=== PATIENT | female | born 1965 | race Native Hawaiian/Other Pacific Islander ===

== ENCOUNTER 2016-11-06 19:31 | Inpatient (IN) | payer OTHER ==
[2016-11-06 19:32] VITALS: BMI 25.3
[2016-11-06] MEDS ORDERED: Sodium Chloride 0.9% 1,000 ML IV ONE (20:06)
[2016-11-06 20:19] LABS: BASO % 0.3 % (0.0-2.0); EOS # 0.1 K/uL (0.0-0.7); EOS % 1.2 % (0.0-4.0); HEMATOCRIT 42.5 % (34.0-47.0); LYMPH # 1.2 K/uL (1.0-4.3); LYMPH % 12.8 % (20.0-40.0); MEAN CELL VOLUME 82.8 fL (81.0-99.0); MEAN CORPUSCULAR HEMOGLOBIN 28.2 pg (27.0-31.0); MEAN CORPUSCULAR HGB CONC 34.1 g/dL (33.0-37.0); MEAN PLATELET VOLUME 7.4 fL (7.2-11.7); MONO # 0.7 K/uL (0.0-0.8); MONO % 7.1 % (0.0-10.0); RED CELL DISTRIBUTION WIDTH 13.3 % (11.5-14.5); WHITE BLOOD COUNT 9.3 K/uL (4.8-10.8)
[2016-11-06 20:25] LABS: POTASSIUM 3.7 mmol/L (3.6-5.2)
[2016-11-06 20:26] LABS: RBC URINE 2 /hpf (0-3); URINE BACTERIA FEW (<OCC); URINE BILIRUBIN NEGATIVE (NEGATIVE); URINE CALCIUM OXALATE CRYSTALS OCC /hpf (<OCC); URINE COLOR Yellow (YELLOW); URINE GLUCOSE (UA) NORMAL (Normal); URINE KETONE NEGATIVE (NEGATIVE); URINE LEUKOCYTE ESTERASE 3+ Leu/uL (Negative); URINE PROTEIN 3+ mg/dL (NEGATIVE); URINE UROBILINOGEN NORMAL mg/dL (0.2-1.0); WBC URINE 23 /hpf (0-5)
[2016-11-06 20:27] LABS: ALB/GLOB RATIO 1.4 (1.0-2.1); BILIRUBIN,TOTAL 0.5 mg/dL (0.2-1.3)
[2016-11-06 20:28] LABS: CALCIUM 9.1 mg/dl (8.6-10.4); URINE BLOOD TRACE (NEGATIVE)
--- NOTE | 2016-11-06 20:43 | C.PDOC ---
History Of Present Illness 51 y/o female presents to the ED with complains of left sided abdominal pain intermittently for the past 3 days. Pt also reports intermittent dizziness, no LOC. Pt denies fever, chills, vomiting, diarrhea, or any other complaints. Chief Complaint (Nursing): Abdominal Pain History Per: Patient History/Exam Limitations: no limitations Onset/Duration Of Symptoms: Days, Intermittent Episodes Current Symptoms Are (Timing): Still Present Radiation Of Pain To:: None Quality Of Discomfort: "Pain" Associated Symptoms: denies: Fever, Chills, Vomiting, Diarrhea Exacerbating Factors: None Recent travel outside of the [place]: No Past Medical History Reviewed: Historical Data, Nursing Documentation, Vital Signs Vital Signs: Last Vital Signs Temp 97.9 F 11/06/16 19:34 Pulse 97 H 11/06/16 19:34 Resp 20 11/06/16 19:34 BP 163/86 H 11/06/16 19:34 Pulse Ox 98 11/06/16 21:09 - Medical History PMH: Asthma, HTN, Hypercholesterolemia - [facility] Procedures ENDOMETRIAL ABLATION (12/13/13) PERCUTAN NEEDLE BIOPSY OF BREAST (02/04/13) RADICAL EXCIS SKIN LES (10/20/14) Family History: States: Unknown Family Hx - Social History Hx Alcohol Use: No Hx Substance Use: No - Immunization History Hx Influenza Vaccination: Yes Review Of Systems Except As Marked, All Systems Reviewed And Found Negative. Constitutional: Negative for: Fever, Chills Gastrointestinal: Positive for: Abdominal Pain. Negative for: Vomiting, Diarrhea Neurological: Positive for: Dizziness Physical Exam - Physical Exam Appears: Non-toxic, No Acute Distress Skin: Warm, Dry, No Rash Head: Atraumatic, Normacephalic Chest: Symmetrical Cardiovascular: Rhythm Regular, No Murmur Respiratory: Normal Breath Sounds, No Rales, No Rhonchi, No Wheezing Gastrointestinal/Abdominal: Soft, Tenderness (LLQ), No Guarding, No Rebound Extremity: Bilateral: Atraumatic Neurological/Psych: Oriented x3, Normal Speech ED Course And Treatment - Laboratory Results Result Diagrams: 11/06/16 20:12 11/06/16 20:12 O2 Sat by Pulse Oximetry: 98 (on room air) Pulse Ox Interpretation: Normal - CT Scan/US CT abdomen Other Rad Studies (CT/US): Read By Radiologist, Radiology Report Reviewed CT/US Interpretation: EXAM: CT Abdomen and Pelvis Without Intravenous Contrast. CLINICAL HISTORY: 51 years old, female; Pain; Abdominal pain; Localized; Left lower quadrant. (llq); Additional info: Abd pain. TECHNIQUE: Axial computed tomography images of the abdomen and pelvis without intravenous. contrast. This CT exam was performed using one or more of the following dose reduction. techniques: automated exposure control, adjustment of the mA and/or kV according to patient size,. and/or use of iterative reconstruction technique. Coronal and sagittal reformatted images were. created and reviewed. COMPARISON : CT - ABDOMEN,PELVIS W/WO CONTRAST 02/29/2016 9:04:57 AM. FINDINGS: Lower thorax: Linear atelectasis or fibrosis in the lung bases. ABDOMEN: Liver: Unremarkable. Gallbladder and bile ducts: Unremarkable. No calcified stones. No ductal dilation. Pancreas: Unremarkable. No ductal dilation. Spleen: Unremarkable. No splenomegaly. Adrenals: Unremarkable. No mass. Kidneys and ureters: Hydronephrosis left kidney due to an obstructing 6 mm stone in the proximal. left ureter. No stones within either kidney or in the right ureter. No hydronephrosis on the right. Stomach and bowel: Unremarkable. No obstruction. No mucosal thickening. Appendix: Normal appendix. PELVIS: Bladder: Unremarkable. No stones. Reproductive: Unremarkable as visualized. ABDOMEN and PELVIS: Intraperitoneal space: Unremarkable. No free air. No significant fluid collection. Bones/joints: No acute fracture. No dislocation. Soft tissues: Unremarkable. Vasculature: Unremarkable. No abdominal aortic aneurysm. Lymph nodes: Unremarkable. No enlarged lymph nodes. IMPRESSION: Hydronephrosis left kidney due to an obstructing 6 mm stone in the proximal left ureter. Thank you for allowing us to participate in the care of your patient. Dictated and Authenticated by: Luiz Meyer MD. 11/06/2016 8:38 PM Eastern Time ([place] & [place]) Medical Decision Making Medical Decision Making: Plan: CT abdomen, EKG, CXR, labs, toradol, cipro, IV fluids, UA Disposition Discussed With : Figueroa Williamson Doctor Will See Patient In The: Hospital Counseled Patient/Family Regarding: Diagnosis - Disposition Disposition Time: 21:05 Condition: STABLE - POA Present On Arrival: None - Clinical Impression Clinical Impression: Abdominal pain, Renal colic on left side, Hydronephrosis - Scribe Statement The provider has reviewed the documentation as recorded by the Willi Gamboa Provider Attestation: All medical record entries made by the Willi were at my direction and personally dictated by me. I have reviewed the chart and agree that the record accurately reflects my personal performance of the history, physical exam, medical decision making, and the department course for this patient. I have also personally directed, reviewed, and agree with the discharge instructions and disposition.
[2016-11-06] MEDS ORDERED: Ciprofloxacin 400mg/200ml D5W 200 ML IVPB STA (20:48)
[2016-11-06] MEDS ORDERED: Ciprofloxacin 400mg/200ml D5W 200 ML IVPB ONE (21:27)
[2016-11-06] MEDS ORDERED: Oxycodone/Acetaminophen 5/325 mg Tab PO PRN (23:23)
[2016-11-06] MEDS ORDERED: Ciprofloxacin 400mg/200ml D5W 200 ML IVPB SCH (23:45)
--- NOTE | 2016-11-07 08:50 | CT ---
PROCEDURE: CT Abdomen and Pelvis without intravenous contrast HISTORY: Abdominal pain COMPARISON: CT scan dated 02/29/2016 TECHNIQUE: Axial computed tomographic images of the abdomen and pelvis were performed without intravenous contrast. Subsequently, sagittal and coronal reformatted images were obtained. Radiation dose: Total exam DLP = 248 mGy-cm. FINDINGS: LOWER THORAX: Linear atelectasis and or fibrosis at the lung bases. LIVER: Unremarkable. No gross lesion or ductal dilatation. GALLBLADDER AND BILE DUCTS: Unremarkable. PANCREAS: Unremarkable. No gross lesion or ductal dilatation. SPLEEN: Unremarkable. ADRENALS: Unremarkable. No mass. KIDNEYS AND URETERS: Hydronephrosis of the left kidney secondary to an obstructing 6 millimeter calculus in the proximal left ureter. VASCULATURE: Unremarkable. No aortic aneurysm. BOWEL: Unremarkable. No obstruction. No gross mural thickening. APPENDIX: Unremarkable. Normal appendix. PERITONEUM: Unremarkable. No free fluid. No free air. LYMPH NODES: Unremarkable. No enlarged lymph nodes. BLADDER: Unremarkable. REPRODUCTIVE: Unremarkable. BONES: No acute fracture. OTHER FINDINGS: None. IMPRESSION: Hydronephrosis of the left kidney secondary to an obstructing 6 millimeter calculus in the proximal left ureter. These findings were preliminarily reported at 8:38 p.m. on 11/06/[address] Luiz Meyer from [employer].
--- NOTE | 2016-11-07 09:14 | RAD ---
HISTORY: abd pain COMPARISON: 12/09/2013 TECHNIQUE: Chest PA and lateral FINDINGS: LUNGS: No active pulmonary disease. PLEURA: No significant pleural effusion identified. No pneumothorax apparent. CARDIOVASCULAR: Normal. OSSEOUS STRUCTURES: No significant abnormalities. VISUALIZED UPPER ABDOMEN: Normal. OTHER FINDINGS: None. IMPRESSION: No active disease.
[2016-11-07] MEDS ORDERED: Enoxaparin 40 mg Syringe SC SCH (10:00)
[2016-11-07] MEDS: Ciprofloxacin 400mg/200ml D5W 200 ML IVPB SCH ×2 (10:25→21:30)
[2016-11-07] MEDS ORDERED: Sodium Chloride 0.9% 1,000 ML IV SCH (14:15)
--- NOTE | 2016-11-07 14:15 | CP.PCM.HP ---
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 She denies any fever, any chills, any burning micturation, any bloody urine. A CT scan of the abdomen reveals a small stone obstructing the proximal left ureter and causing a left hydronephrosis. She was diagnosed to have a left utereal stent with a left hydronephrosis since last year, but the patient did not seek an urological evaluation as recommended by her PMD. She is also known to have a hypertension, a bronchial asthma, a hypercholesterolemia, a bordeline DM. Past surgical Hx includes a uterine D&C in the past. She has no known drug allergy. She is , denies any cigarette smoking, any alcohol abuse, any illicit drug use. Her family medical Hx consists of HPTH, DM. Her medications includes Losartan 50 mg PO qd, Singulair 10 mg PO qd, and Crestor 10 mg PO qd. WBC: 9.4 Hgb: 13.4 BUN: 15 creatinine: 1.5 U/A : trace blood, 3 + protein, 3+ Leucocytes esterase. Present on Admission - Present on Admission Any Indicators Present on Admission: No Review of Systems - Gastrointestinal Gastrointestinal: Abdominal Pain, Nausea - Genitourinary Genitourinary: Flank Pain Past Patient History - Infectious Disease Hx of Infectious Diseases: None - Tetanus Immunizations Tetanus Immunization: Unknown - Past Medical History & Family History Past Medical History?: Yes - Past Social History Smoking Status: Never Smoked Alcohol: None Drugs: Denies Home Situation {Lives}: With Family Domestic Violence: Negative - CARDIAC Hx Cardiac Disorders: Yes Hx Hypercholesterolemia: Yes Hx Hypertension: Yes - PULMONARY Hx Respiratory Disorders: Yes Hx Asthma: Yes - NEUROLOGICAL Hx Neurological Disorder: No - HEENT Hx HEENT Problems: No - RENAL Hx Chronic Kidney Disease: No - ENDOCRINE/METABOLIC Hx Endocrine Disorders: No - HEMATOLOGICAL/ONCOLOGICAL Hx Blood Disorders: No - INTEGUMENTARY Hx Dermatological Problems: No - MUSCULOSKELETAL/RHEUMATOLOGICAL Hx Musculoskeletal Disorders: No Hx Falls: No - GASTROINTESTINAL Hx Gastrointestinal Disorders: No - GENITOURINARY/GYNECOLOGICAL Hx Genitourinary Disorders: No Other/Comment: MENORRHAGIA - PSYCHIATRIC Hx Psychophysiologic Disorder: No Hx Substance Use: No - SURGICAL HISTORY Hx Surgeries: Yes Hx Section: Yes (x2) Hx Dilation and Curettage: Yes Other/Comment: STEREOTACTIC BREAST BX - ANESTHESIA Hx Anesthesia: Yes Hx Anesthesia Reactions: No Hx Malignant Hyperthermia: No Has any member of the family had a problem w/ anesthesia?: No Meds Allergies/Adverse Reactions: Allergies Allergy/AdvReac Type Severity Reaction Status Date / Time No Known Allergies Allergy Verified 11/06/16 19:37 Physical Exam - Constitutional Appears: No Acute Distress - Head Exam Head Exam: NORMAL INSPECTION - Eye Exam Eye Exam: Normal appearance - ENT Exam ENT Exam: Normal Exam - Neck Exam Neck exam: Positive for: Normal Inspection - Respiratory Exam Respiratory Exam: Clear to Auscultation Bilateral, NORMAL BREATHING PATTERN - Cardiovascular Exam Cardiovascular Exam: REGULAR RHYTHM - GI/Abdominal Exam GI & Abdominal Exam: Normal Bowel Sounds, Soft Additional comments: Mild tenderness of the left flank. - Rectal Exam Rectal Exam: Deferred - Extremities Exam Extremities exam: Positive for: normal inspection - Back Exam Back exam: NORMAL INSPECTION - Neurological Exam Neurological exam: Alert, CN II-XII Intact, Normal Gait, Oriented x3 - Psychiatric Exam Psychiatric exam: Anxious - Skin Skin Exam: Dry, Intact, Normal Color, Warm Results - Vital Signs Recent Vital Signs: Last Vital Signs Temp 99.2 F 11/07/16 07:30 Pulse 87 11/07/16 07:30 Resp 18 11/07/16 07:30 BP 162/79 H 11/07/16 07:30 Pulse Ox 98 11/07/16 07:30 - Labs Result Diagrams: 11/06/16 20:12 11/06/16 20:12 Assessment & Plan (1) Hydronephrosis Assessment and Plan: Secondary to an obstructing left ureteral stones. Hold Lovenox and Toradol for a cystoscopy, lithotrysy and ureteral stent insertion. Status: Acute (2) Renal colic on left side Assessment and Plan: From a left ureteral stone. Start Dilaudid 1mg IV q 4 H PRN for pain. Get a urological evaluation with Dr Chakraborty. Status: Acute (3) Hypertension Assessment and Plan: Put back on Losartan. Status: Acute (4) Urinary tract infection Assessment and Plan: Urine for C&S. Start empirically on Cipro 400 mg IVPB q 12 h, IV NS. Status: Acute Decision To Admit - Pt Status Changed To: Hospital Disposition Of: Inpatient - Admit Certification Admit to Inpatient:: After my assessment, the patient will require hospitalization for at least two midnights. This is because of the severity of symptoms shown, intensity of services needed, and/or the medical risk in this patient being treated as an outpatient. - InPatient: Physician Admission Certification:: After my assessements, the patient requires hospitalization for at least 2 midnights. - . Bed Request Type: Regular
--- NOTE | 2016-11-07 17:08 | RAD ---
HISTORY: Abdominal pain COMPARISON: CT abdomen and pelvis 11/06/2016 FINDINGS: BOWEL: Right colonic stool retention. No bowel obstruction. The hemidiaphragms are clipped on this exam No subdiaphragmatic free air on same-day chest x-ray 11/06/2016 5 mm calcification left upper outer quadrant consistent with the CT reported obstructing calculus in the proximal left ureter . Left hemipelvic phlebolith BONES: Normal. OTHER FINDINGS: None. IMPRESSION: Left upper abdominal quadrant calcification consistent with the CT reported obstructing calculus in the proximal left ureter. Right colonic stool retention. No bowel obstruction
[2016-11-07] MEDS ORDERED: Midazolam 2 MG/2 ML VIAL ONE (18:23)
[2016-11-07] MEDS ORDERED: Propofol 10 mg/ml Inj (20 ML) ONE ×2 (18:23→19:17)
[2016-11-07] MEDS ORDERED: HYDROmorphone 0.5 mg/0.5 ml ISec IVP PRN (18:26)
[2016-11-07] MEDS ORDERED: Lactated Ringer's 1,000 ML IV ONE ×2 (18:41)
[2016-11-07] MEDS ORDERED: Iohexol 240 (50 ml) ONE (18:46)
[2016-11-07] MEDS ORDERED: Ciprofloxacin 400mg/200ml D5W 200 ML IVPB ONE (19:05)
--- NOTE | 2016-11-07 19:32 | CP.PCM.CON ---
Past Patient History - Infectious Disease Hx of Infectious Diseases: None - Tetanus Immunizations Tetanus Immunization: Unknown - Past Medical History & Family History Past Medical History?: Yes - Past Social History Smoking Status: Never Smoked Alcohol: None Drugs: Denies Home Situation {Lives}: With Family Domestic Violence: Negative - CARDIAC Hx Cardiac Disorders: Yes Hx Hypercholesterolemia: Yes Hx Hypertension: Yes - PULMONARY Hx Respiratory Disorders: Yes Hx Asthma: Yes - NEUROLOGICAL Hx Neurological Disorder: No - HEENT Hx HEENT Problems: No - RENAL Hx Chronic Kidney Disease: No - ENDOCRINE/METABOLIC Hx Endocrine Disorders: No - HEMATOLOGICAL/ONCOLOGICAL Hx Blood Disorders: No - INTEGUMENTARY Hx Dermatological Problems: No - MUSCULOSKELETAL/RHEUMATOLOGICAL Hx Musculoskeletal Disorders: No Hx Falls: No - GASTROINTESTINAL Hx Gastrointestinal Disorders: No - GENITOURINARY/GYNECOLOGICAL Hx Genitourinary Disorders: No Other/Comment: MENORRHAGIA - PSYCHIATRIC Hx Psychophysiologic Disorder: No Hx Substance Use: No - SURGICAL HISTORY Hx Surgeries: Yes Hx Section: Yes (x2) Hx Dilation and Curettage: Yes Other/Comment: STEREOTACTIC BREAST BX - ANESTHESIA Hx Anesthesia: Yes Hx Anesthesia Reactions: No Hx Malignant Hyperthermia: No Has any member of the family had a problem w/ anesthesia?: No Meds Allergies/Adverse Reactions: Allergies Allergy/AdvReac Type Severity Reaction Status Date / Time No Known Allergies Allergy Verified 11/06/16 19:37 - Medications Medications: Current Medications Hydromorphone HCl (Dilaudid) 1 mg IVP Q4H PRN PRN Reason: Pain, moderate (4-7) Ciprofloxacin (Cipro 400mg/200ml Dsw) 200 mls @ 133 mls/hr IVPB Q12H [facility] Last Admin: 11/07/16 10:25 Dose: 133 mls/hr Sodium Chloride (Sodium Chloride 0.9%) 1,000 mls @ 100 mls/hr IV .Q10H [facility] Losartan Potassium (Cozaar) 50 mg PO DAILY [facility] Last Admin: 11/07/16 10:26 Dose: Not Given Ondansetron HCl (Zofran Inj) 4 mg IVP Q4H PRN PRN Reason: Nausea/Vomiting Ondansetron HCl (Zofran Inj) 4 mg IVP ONCE PRN PRN Reason: Nausea/Vomiting Stop: 11/07/16 20:27 Tamsulosin HCl (Flomax) 0.4 mg PO ONCE ONE Stop: 11/07/16 19:30 Results - Vital Signs Recent Vital Signs: Last Vital Signs Temp 97.8 F 11/07/16 15:58 Pulse 76 11/07/16 15:58 Resp 20 11/07/16 15:58 BP 156/96 H 11/07/16 15:58 Pulse Ox 96 11/07/16 15:58 - Labs Result Diagrams: 11/08/16 06:55 11/08/16 06:55 Assessment & Plan - Assessment and Plan (Free Text) Assessment: IMP: L RENAL COLIC L UPPER URETERAL CALCULUS HX OF HYPERTENSION Plan: please see dictated report - Date & Time Date: 11/07/16 Time: 06:55
--- NOTE | 2016-11-07 19:34 | PCM.SURG1 ---
Surgeon's Initial Post Op Note - Surgeon's Notes Surgeon: Hattie CASTRO [employer] Console Operator: NONE Pre-Operative Diagnosis: L RENAL COLIC. L URETERAL CALCULUS Operative Findings: SAME. L HYDRONEPHROSIS Post-Operative Diagnosis: SAME Operation Performed: CYSTO. L RTG PYELOGRAM. INSERTION OF L URETERAL STENT Specimen/Specimens Removed: URINE Estimated Blood Loss: EBL {In ML}: 0 Blood Products Given: N/A Drains Used: No Drains Date of Surgery/Procedure: 11/07/16 Time of Surgery/Procedure: 19:34
[2016-11-07] MEDS: HYDROmorphone 1 mg/ml ISec IVP PRN (22:27)
[2016-11-08] MEDS: HYDROmorphone 1 mg/ml ISec IVP PRN (05:13)
[2016-11-08 07:11] LABS: BASO % 0.3 % (0.0-2.0); EOS # 0.1 K/uL (0.0-0.7); EOS % 0.6 % (0.0-4.0); HEMATOCRIT 36.6 % (34.0-47.0); LYMPH # 1.4 K/uL (1.0-4.3); LYMPH % 15.6 % (20.0-40.0); MEAN CELL VOLUME 83.3 fL (81.0-99.0); MEAN CORPUSCULAR HEMOGLOBIN 28.8 pg (27.0-31.0); MEAN CORPUSCULAR HGB CONC 34.6 g/dL (33.0-37.0); MEAN PLATELET VOLUME 7.7 fL (7.2-11.7); MONO # 0.5 K/uL (0.0-0.8); MONO % 5.3 % (0.0-10.0); WHITE BLOOD COUNT 8.8 K/uL (4.8-10.8)
[2016-11-08 07:26] LABS: POTASSIUM 4.2 mmol/L (3.6-5.2)
[2016-11-08 07:29] LABS: ALB/GLOB RATIO 1.3 (1.0-2.1); BILIRUBIN,TOTAL 0.8 mg/dL (0.2-1.3); CALCIUM 8.4 mg/dl (8.6-10.4); TOTAL PROTEIN 6.4 g/dL (6.3-8.3)
--- NOTE | 2016-11-08 08:08 | CON ---
DATE: 11/07/2016 Urology consultation requested by Dr. Figueroa Williamson. Urology consultation filled by Dr. Clementine Chakraborty . REASON FOR CONSULTATION: Renal colic. The patient is a 51-year-old female with left flank pain. The patient is in otherwise good health. The patient has a history of hypertension. She is otherwis e well. No history of diabetes. There is no history of previous urolithiasis. The patient developed severe left flank pain. There was associated nausea. No fever. No vomiting. No gross hematuria. The patient presented to the Emergency Room. She was found to have an obstructing 7 mm left upper ur eteral stone. The patient is now admitted for evaluation and therapy. The patient has required parenteral analgesics as well. PAST SURGICAL HISTORY: The patient has history of previous section x 2. The patient lives with family. The patient is employed as a nurse. MEDICATIONS: See attached reports. ALLERGIES: None known. The patient takes medications for hypertension. PHYSICAL EXAMINATION: GENERAL: The patient is well-developed, well-nourished, middle-aged female. The patient is awake an d alert. ABDOMEN: Soft, nontender, nondistended. BACK: Mild left CVA tenderness. LABORATORY DATA: Reviewed. I reviewed the CT scan and the abdominal x-ray. There is an obstructing upper ureteral calculus, at approximately the level of the lower pole of the kidney on the left side. The calculus is also seen on the PA view of the abdomen. IMPRESSION: Left renal colic. Left upper ureteral calculus. RECOMMENDATIONS AND PLAN: I will discuss the findings with the patient. Possible need for cystoscop y and stent insertion. Possible extracorporeal shockwave lithotripsy. Possible laser lithotripsy. Further therapy to follow according to patient's clinical course. Thank you for recommending the patient for urology consultation. Clementine Chakraborty MD cc: [phone] TT: 11/08/2016 08:07:46 Confirmation # [id number] Dictation # [id number]
--- NOTE | 2016-11-08 08:11 | OP ---
PROCEDURE DATE: 11/07/2016 DATE OF PROCEDURE: 11/07/2016. PREOPERATIVE DIAGNOSES: Left renal colic. Left ureteral calculus. POSTOPERATIVE DIAGNOSES: Left renal colic. Left ureteral calculus. PROCEDURES: Cystoscopy. Left retrograde pyelogram. Left ureteral stone manipulation. Insertion of left ureteral stent. The procedure was performed under video endoscopic control as well as under fluoroscopic control. DESCRIPTION OF PROCEDURE: The patient received perioperative antibiotics. The patient was placed in lithotomy position. Genitalia prepped and draped sterilely. Sedation anesthesia was provided by [facility] anesthesiologist. A 22-Japanese cystoscope sheath was introduced with obturator. Urine was sent for bacteriologic examin [facility], [place]. The bladder was inspected. There was no bladder tumor. There was no bladder stone. There was mild inflammation of bladder mucosa. The ureteral orifice was in normal position and shape. A 0.035-inch guidewire was inserted into the left ureteral orifice. The guidewire was passed up to t he level of the lumbar ureter. There was initially some obstruction encountered. Thereafter, I went up to the level of the kidney. An open-ended catheter was inserted over the guidewire into the proximal ureter. Iodinated contrast dye was instilled. There was noted to be a filling defect within the renal pelvis consistent with th e stone. The guidewire was reinserted up to the level of the kidney. A 6-Japanese multi-length stent w as inserted over the guidewire. Proper stent position was confirmed with fluoroscopy and endoscopy. The bladder was drained. Cystoscope and sheath removed. Bimanual examination/exam under anesthesia was performed. There was no abnormal pelvic mass fixation or induration. There was no adnexal mass. The uterus was palpable and mobile. The patient tolerated the procedure without complication. Clementine Chakraborty MD cc: [phone] TT: 11/08/2016 08:11:36 co
[2016-11-08] MEDS: Ciprofloxacin 400mg/200ml D5W 200 ML IVPB SCH ×2 (08:37→21:04)
--- NOTE | 2016-11-08 12:26 | PCM.URO ---
Urology Progress Note - General General: absent: Tolerating Diet - Subjective Abdominal Pain: Yes Flank Pain: Yes Nausea: Yes Dysuria: Yes Hematuria: Yes (mild) Frequency: Yes Stone Passed: No Dsypnea: No Chest Pain: No Fever & Chills: No - Objective Lab Results Last 24 Hours: Laboratory Results - last 24 hr 11/07/16 11/08/16 23:52 06:55 WBC 8.8 RBC 4.39 Hgb 12.6 Hct 36.6 MCV 83.3 MCH 28.8 MCHC 34.6 RDW 13.0 Plt Count 208 MPV 7.7 Neut % (Auto) 78.2 H Lymph % (Auto) 15.6 L Ward % (Auto) 5.3 Eos % (Auto) 0.6 Baso % (Auto) 0.3 Neut # 6.9 Lymph # 1.4 Ward # 0.5 Eos # 0.1 Baso # 0.0 Sodium 140 Potassium 4.2 Chloride 98 Carbon Dioxide 30 Anion Gap 16 BUN 20 H Creatinine 1.3 H Est GFR ( Amer) 52 Est GFR (Non-Af Amer) 43 POC Glucose (mg/dL) 160 H Random Glucose 113 H Calcium 8.4 L Total Bilirubin 0.8 AST 23 ALT 36 Alkaline Phosphatase 54 Total Protein 6.4 Albumin 3.6 Globulin 2.8 Albumin/Globulin Ratio 1.3 Intake & Output: Intake & Output 11/07/16 11/08/16 11/08/16 18:59 06:59 18:59 Intake Total 1000 Output Total 500 Balance 500 Intake: Intake, IV Amount 800 Left Forearm 800 Oral 200 Output: Urine 500 Urine, Voided 500 Other: # Voids Urine, Voided 1 Vital Signs: Vital Signs - 24 hr 11/07/16 11/07/16 11/07/16 15:00 15:58 19:37 Temperature 97.8 F 98.8 F Pulse Rate 87 76 83 Respiratory 20 14 Rate Blood Pressure 156/96 H 120/73 O2 Sat by Pulse 96 98 Oximetry 11/07/16 11/07/16 11/07/16 19:45 20:00 20:15 Temperature 99 F Pulse Rate 80 77 78 Respiratory 11 L 13 13 Rate Blood Pressure 115/74 141/84 148/89 O2 Sat by Pulse 99 100 95 Oximetry 11/07/16 11/08/16 23:30 07:30 Temperature 98.8 F Pulse Rate 78 79 Respiratory 18 Rate Blood Pressure 171/89 H O2 Sat by Pulse 96 Oximetry - Physical Exam Abdominal Exam: Soft, Non-Tender, Non-Distended Back: No CVA Tenderness - Plan Intake & Output: Yes See Orders: Yes Additional Information: stable post-cysto, stent insertion. urolithiasis. voiding sx. plan: abd xray. antibiotic rx. add tamsulosin, pyridium, oxybutinin - Date & Time of Note Date: 11/08/16 Time: 12:26
--- NOTE | 2016-11-08 23:06 | CP.PCM.PN ---
Subjective - Date & Time of Evaluation Date of Evaluation: 11/08/16 Time of Evaluation: 19:30 - Subjective Subjective: Patient nauseaous this AM with abdominal pain. Put on clear liquid diet by Dr Chakraborty. She underwent an insertion of a ureteral stent yesterday. Litrotrypsy could not be done because the patient received Toradol IV for pain yesterday. Will try a regular diet in AM before discharging her home. She is scheduled for an [facility]SWL at the [facility] on Friday. Objective - Vital Signs/Intake and Output Vital Signs (last 24 hours): Temp Pulse Resp BP Pulse Ox 97.9 F 82 18 151/83 H 97 11/08/16 15:31 11/08/16 15:31 11/08/16 15:31 11/08/16 15:31 11/08/16 15:31 Intake and Output: 11/08/16 11/09/16 18:59 06:59 Intake Total 400 1200 Output Total 600 2000 Balance -200 -800 - Medications Medications: Current Medications Hydromorphone HCl (Dilaudid) 1 mg IVP Q4H PRN PRN Reason: Pain, moderate (4-7) Last Admin: 11/08/16 05:13 Dose: 1 mg Ciprofloxacin (Cipro 400mg/200ml Dsw) 200 mls @ 133 mls/hr IVPB Q12H MICHA Last Admin: 11/08/16 21:04 Dose: 133 mls/hr Losartan Potassium (Cozaar) 50 mg PO DAILY [facility] Last Admin: 11/08/16 10:00 Dose: Not Given Ondansetron HCl (Zofran Inj) 4 mg IVP Q4H PRN PRN Reason: Nausea/Vomiting Last Admin: 11/08/16 05:20 Dose: 4 mg Oxybutynin Chloride (Ditropan Tab) 5 mg PO TID [facility] Last Admin: 11/08/16 18:23 Dose: 5 mg Phenazopyridine HCl (Pyridium) 200 mg PO TIDPC [facility] Last Admin: 11/08/16 18:23 Dose: 200 mg Tamsulosin HCl (Flomax) 0.4 mg PO DAILY [facility] Last Admin: 11/08/16 14:38 Dose: 0.4 mg - Labs Labs: 11/08/16 06:55 11/08/16 06:55 - Constitutional Appears: No Acute Distress - Head Exam Head Exam: NORMAL INSPECTION - Eye Exam Eye Exam: Normal appearance - ENT Exam ENT Exam: Normal Exam - Neck Exam Neck Exam: Normal Inspection - Respiratory Exam Respiratory Exam: Clear to Ausculation Bilateral, NORMAL BREATHING PATTERN - Cardiovascular Exam Cardiovascular Exam: REGULAR RHYTHM - GI/Abdominal Exam GI & Abdominal Exam: Soft, Normal Bowel Sounds - Rectal Exam Rectal Exam: Deferred - Extremities Exam Extremities Exam: Normal Inspection - Back Exam Back Exam: NORMAL INSPECTION - Neurological Exam Neurological Exam: Alert, CN II-XII Intact, Normal Gait, Oriented x3 - Psychiatric Exam Psychiatric exam: Anxious - Skin Skin Exam: Dry, Intact, Normal Color, Warm Assessment and Plan (1) Hydronephrosis Assessment & Plan: For a lithotrysy on Friday at the [facility] in [place]. Status: Acute (2) Renal colic on left side Assessment & Plan: Left ureteral stent inserted yesterday by Dr Chakraborty. Status: Acute (3) Hypertension Assessment & Plan: To continue Losartan PO. Status: Acute (4) Urinary tract infection Assessment & Plan: To continue IV Cipro. Status: Acute
[2016-11-09 00:51] VITALS: PULSE 86
--- NOTE | 2016-11-09 06:41 | CARD ---
APPROVED REPORT EKG Measurement Heart [id number] <Conclusion> Normal sinus rhythm Normal ECG
[2016-11-09 07:09] LABS: BASO % 0.6 % (0.0-2.0); EOS # 0.2 K/uL (0.0-0.7); EOS % 3.2 % (0.0-4.0); HEMATOCRIT 33.9 % (34.0-47.0); LYMPH % 28.3 % (20.0-40.0); MEAN CELL VOLUME 83.5 fL (81.0-99.0); MEAN CORPUSCULAR HEMOGLOBIN 28.5 pg (27.0-31.0); MEAN CORPUSCULAR HGB CONC 34.2 g/dL (33.0-37.0); MEAN PLATELET VOLUME 7.5 fL (7.2-11.7); MONO # 0.5 K/uL (0.0-0.8); MONO % 7.2 % (0.0-10.0); RED CELL DISTRIBUTION WIDTH 12.8 % (11.5-14.5)
[2016-11-09 08:06] LABS: POTASSIUM 3.8 mmol/L (3.6-5.2)
[2016-11-09 08:08] LABS: ALB/GLOB RATIO 1.2 (1.0-2.1); BILIRUBIN,TOTAL 0.3 mg/dL (0.2-1.3)
[2016-11-09 08:09] LABS: CALCIUM 8.5 mg/dl (8.6-10.4)
[2016-11-09] MEDS: Ciprofloxacin 400mg/200ml D5W 200 ML IVPB SCH (08:31)
--- NOTE | 2016-11-09 10:52 | RAD ---
HISTORY: neprolithiasis COMPARISON: Comparison is made to 11/07/2016 FINDINGS: BOWEL: Mildly dilated small and large bowel loops are seen slightly larger compared to the previous exam. BONES: Normal. OTHER FINDINGS: Interval insertion of left-sided ureter oral stent IMPRESSION: Left-sided ureteral stent seen in place. Mildly dilated small and large bowel loops.
[2016-11-09 16:11] VITALS: BP 166/95; RESP 18; TEMP 98.6; O2SAT 86
--- NOTE | 2016-11-09 16:36 | CP.PCM.PN ---
Subjective - Date & Time of Evaluation Date of Evaluation: 11/09/16 Time of Evaluation: 16:32 - Subjective Subjective: Patient has less back pain, controlled by PO Tylenol. Afevrile, no nausea, tolerating solid foods well. To be discharged home today on Ditropan XL 10 mg PO qd, Flomax 0.4 mg PO qd, Levaquin 500 mg PO qd for 7 days, Crestor 10 mg PO qd, Singulair 10 mg PO qd, Losartan 50 mg PO qd, Tylenol 650 mg PO q [address] Chakraborty schedules the patient for an [facility]L at [facility] [place] on Friday. Objective - Vital Signs/Intake and Output Vital Signs (last 24 hours): Temp Pulse Resp BP Pulse Ox 98.6 F 86 18 166/95 H 86 L 11/09/16 16:00 11/09/16 16:19 11/09/16 16:00 11/09/16 16:00 11/09/16 16:00 Intake and Output: 11/09/16 11/09/16 06:59 18:59 Intake Total 2200 Output Total 3400 Balance -1200 - Medications Medications: Current Medications Hydromorphone HCl (Dilaudid) 1 mg IVP Q4H PRN PRN Reason: Pain, moderate (4-7) Last Admin: 11/08/16 05:13 Dose: 1 mg Ciprofloxacin (Cipro 400mg/200ml Dsw) 200 mls @ 133 mls/hr IVPB Q12H [facility] Last Admin: 11/09/16 08:31 Dose: Not Given Losartan Potassium (Cozaar) 50 mg PO DAILY [facility] Last Admin: 11/09/16 10:51 Dose: 50 mg Ondansetron HCl (Zofran Inj) 4 mg IVP Q4H PRN PRN Reason: Nausea/Vomiting Last Admin: 11/08/16 05:20 Dose: 4 mg Oxybutynin Chloride (Ditropan Tab) 5 mg PO TID [facility] Last Admin: 11/09/16 16:14 Dose: 5 mg Phenazopyridine HCl (Pyridium) 200 mg PO TIDPC [facility] Last Admin: 11/09/16 13:38 Dose: 200 mg Tamsulosin HCl (Flomax) 0.4 mg PO DAILY [facility] Last Admin: 11/09/16 09:33 Dose: 0.4 mg - Labs Labs: 11/09/16 06:30 11/09/16 06:30 - Constitutional Appears: No Acute Distress - Head Exam Head Exam: NORMAL INSPECTION - Eye Exam Eye Exam: Normal appearance - ENT Exam ENT Exam: Normal Exam - Neck Exam Neck Exam: Normal Inspection - Respiratory Exam Respiratory Exam: Clear to Ausculation Bilateral, NORMAL BREATHING PATTERN - Cardiovascular Exam Cardiovascular Exam: REGULAR RHYTHM - GI/Abdominal Exam GI & Abdominal Exam: Soft, Normal Bowel Sounds - Rectal Exam Rectal Exam: Deferred - Extremities Exam Extremities Exam: Normal Inspection - Back Exam Back Exam: NORMAL INSPECTION - Neurological Exam Neurological Exam: Alert, Awake, CN II-XII Intact, Normal Gait, Oriented x3 - Psychiatric Exam Psychiatric exam: Anxious - Skin Skin Exam: Dry, Intact, Normal Color, Warm Assessment and Plan (1) Hydronephrosis Assessment & Plan: Left ureteral stent inserted by Dr Chakraborty. Status: Acute (2) Renal colic on left side Assessment & Plan: For an ESWL on Friday. Status: Acute (3) Hypertension Assessment & Plan: To continue Losartan 50 mg PO qd. Status: Acute (4) Urinary tract infection Assessment & Plan: Levaquin 500 mg PO qd for 7 days. Status: Acute
--- NOTE | 2016-11-10 10:19 | RAD ---
PROCEDURE: Fluoroscopic guidance HISTORY: LEFT STENT INSERT COMPARISON: Comparison is made to the previous CT of the abdomen dated 11/06/2016 TECHNIQUE: Fluoroscopic guidance was provided during left retrograde pyelogram and left ureter stent insertion FINDINGS: The submitted images demonstrate pyelograms and left ureter stent insertion on the left side IMPRESSION: Fluoroscopic guidance was provided. Please refer to the procedure report for more details.
--- NOTE | 2016-11-18 19:12 | DS ---
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 In the ED at [facility], a CAT scan of the abdomen and pelvis revealed left hydronephrosis with an obstructing left ureteral stone. PAST MEDICAL HISTORY: She is known to have hypertension, bronchial asthma and hypercholesterolemia. MEDICATIONS: She was taking Crestor 10 mg p.o. every day, losartan 50 mg p.o. every day, Singulair 10 mg p.o. every day. SOCIAL HISTORY: She denies any history of smoking any ETOH abuse. She is . PAST SURGICAL HISTORY: Includes in the past. PHYSICAL EXAMINATION: On admission, she was alert, oriented, in no acute distress. She was afebrile. She denies any blood in the urine, any fever, any pain in urinating. Blood pressure was 150/90, heart rate was 86, temperature 98.6, pulse 88. There was a mild tenderness at the left flank, but the rest of the examination was normal. LABORATORY DATA: Her WBC count was 9.3, hemoglobin 14.5, serum sodium 137, potassium 3.7, BUN 15, creatinine 1.3, serum glucose 153, total bilirubin and liver enzymes are normal. Urinalysis revealed 3+ protein and 3+ leukocyte esterase, and few bacteria. The urine cultures revealed strep agalactiae group B. HOSPITAL COURSE: She was put on IV Cipro and she was given pain medication with Dilaudid. She was seen by Dr. Clementine Chakraborty, who did the cystoscopy with left ureteral stent insertion on 11/08/2016. He could not perform the lithotripsy, because on admission, she was given Toradol IV for pain and a lithotripsy was contraindicated because of that. She was discharged on 2016 in a stable condition. She is scheduled to have early [facility]ri[facility] done at [facility] [place] in the next 3 days. She goes home on Ditropan XL 10 mg p.o. every day, Flomax 0.4 mg every day, Levaquin 500 mg p.o. every day for 7 days, Crestor 10 mg every day, Singulair 10 mg p.o. every day, losartan 50 mg p.o. b.i.d., Tylenol 650 mg p.o. every 4 hours p.r.n. for pain. FINAL DIAGNOSES: Obstructing left ureteral stone with left hydronephrosis, urinary tract infection, hypertension. She will have an extracorporeal shock wave lithotripsy in the next 3 days in [place]. Figueroa Williamson MD cc: 1200 TT: 11/18/2016 19:11:46 mn MTDD
== END 2016-11-09 16:30 | disposition home or self-care (01) | DRG 669 ==
LOC: C.ER 19:31 → C.9E 21:10 → C.6T 22:11
PROVIDERS: ADMIT Internal Medicine Cardiovascular Disease; ATTEND Internal Medicine Cardiovascular Disease
PROC: 0T778DZ Dilation of Left Ureter with Intraluminal Device, Via Natural or Artificial Opening Endoscopic (ICD-10-PCS; 2016-11-07)
PROC: BT1F1ZZ Fluoroscopy of Left Kidney, Ureter and Bladder using Low Osmolar Contrast (ICD-10-PCS; 2016-11-07)
PROC: 0TC78ZZ Extirpation of Matter from Left Ureter, Via Natural or Artificial Opening Endoscopic (ICD-10-PCS; principal; 2016-11-07 08:45)
DX: N13.2 Hydronephrosis with renal and ureteral calculous obstruction (principal); I10 Essential (primary) hypertension; N39.0 Urinary tract infection, site not specified

== ENCOUNTER 2017-03-06 12:31 | Emergency (ER) | payer OTHER ==
[2017-03-06 12:31] VITALS: BMI 25.3
[2017-03-06 12:45] VITALS: O2SAT 97
--- NOTE | 2017-03-06 14:02 | C.PDOC ---
History Of Present Illness 51 y/o female presents to ED with complaints of right shoulder pain. Pt referred from [facility] for right shoulder injury which occurred on 03/03. 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 Denies weakness or numbness or any other complaints. REFERRED FROM [facility] FOR R SHOULDER INJURY [facility] FONSECA NEW ONSET R SHOULDER PAIN AND DISABILITY SINCE PULLING UP A PATIENT Time Seen by Provider: 03/06/17 13:41 Chief Complaint (Nursing): Upper Extremity Problem/Injury History Per: Patient History/Exam Limitations: no limitations Onset/Duration Of Symptoms: Days Current Symptoms Are (Timing): Worse Quality: "Pain" Severity: Severe Recent travel outside of the [place]: No Past Medical History Reviewed: Historical Data, Nursing Documentation, Vital Signs Vital Signs: Last Vital Signs Temp 97.8 F 03/06/17 12:44 Pulse 85 03/06/17 12:44 Resp 20 03/06/17 12:44 BP 173/83 H 03/06/17 12:44 Pulse Ox 97 03/06/17 14:05 - Medical History PMH: Asthma, HTN, Hypercholesterolemia - [facility] Procedures DILATION OF LEFT URETER WITH INTRALUMINAL DEVICE, ENDO (11/06/16) ENDOMETRIAL ABLATION (12/13/13) EXTIRPATION OF MATTER FROM LEFT URETER, ENDO (11/06/16) FLUOROSCOPY KIDNEY, URETER, BLADDER, L W L OSM CONTRAST (11/06/16) PERCUTAN NEEDLE BIOPSY OF BREAST (02/04/13) RADICAL EXCIS SKIN LES (10/20/14) Family History: States: Unknown Family Hx - Social History Hx Alcohol Use: No Hx Substance Use: No - Immunization History Hx Influenza Vaccination: Yes Review Of Systems Musculoskeletal: Positive for: Shoulder Pain (right) Neurological: Negative for: Weakness, Numbness Physical Exam - Physical Exam Appears: Non-toxic, No Acute Distress Skin: Warm, Dry, No Rash, No Ecchymosis Head: Atraumatic, Normacephalic Chest: Symmetrical Cardiovascular: Rhythm Regular Respiratory: Normal Breath Sounds, No Rales, No Rhonchi, No Wheezing Extremity: No Normal ROM (Right shoulder severe limitation on ROM, <30 degrees on all planes), Capillary Refill (<2 seconds), No Deformity, No Swelling Pulses: Right Radial: Normal Neurological/Psych: Oriented x3, Normal Speech, Normal Cognition, Normal Motor, Normal Sensation ED Course And Treatment O2 Sat by Pulse Oximetry: 97 (room air) Pulse Ox Interpretation: Normal Medical Decision Making Medical Decision Making: Outpatient MRI done 03/04, results reviewed. Disposition Counseled Patient/Family Regarding: Diagnosis, Need For Followup - Disposition Referrals: [facility] [Provider Group] Disposition: HOME/ ROUTINE Disposition Time: 14:03 Condition: GOOD Instructions: Rotator Cuff Injury (ED) Forms: [facility] (Lithuanian), Work Excuse - Clinical Impression Clinical Impression: Rotator cuff injury - Scribe Statement The provider has reviewed the documentation as recorded by the Willi Gamboa Provider Attestation: All medical record entries made by the Sharifibe were at my direction and personally dictated by me. I have reviewed the chart and agree that the record accurately reflects my personal performance of the history, physical exam, medical decision making, and the department course for this patient. I have also personally directed, reviewed, and agree with the discharge instructions and disposition.
[2017-03-06 14:30] VITALS: BP 136/82; PULSE 78; RESP 18; TEMP 97.7
== END 2017-03-06 14:10 | disposition home or self-care (01) ==
LOC: C.ER 12:31
DX: S46.001A Unspecified injury of muscle(s) and tendon(s) of the rotator cuff of right shoulder, initial encounter (principal); X58.XXXA Exposure to other specified factors, initial encounter

== ENCOUNTER 2018-08-12 10:32 | Observation (INO) | payer OTHER ==
[2018-08-12 10:38] VITALS: BMI 25.3
--- NOTE | 2018-08-12 13:00 | RAD ---
HISTORY: SOB COMPARISON: Chest x-ray performed 11/06/16 TECHNIQUE: Chest, one view. FINDINGS: Examination limited by habitus. LUNGS: No focal consolidation. Please note that chest x-ray has limited sensitivity for the detection of pulmonary masses. PLEURA: No significant pleural effusion identified. No definite pneumothorax . CARDIOVASCULAR: Heart size appears within normal limits. No significant atherosclerotic calcification present. OSSEOUS STRUCTURES: No acute osseous abnormality identified. VISUALIZED UPPER ABDOMEN: Elevation of the right hemidiaphragm. OTHER FINDINGS: None. IMPRESSION: No focal consolidation.
--- NOTE | 2018-08-12 13:33 | C.PDOC ---
History Of Present Illness 52 y/o female comes in complaining of feeling lightheadedness since 2 days ago, with left-sided chest pain radiating to upper back. States she feels tightness when she takes a deep breath. Patient has a history of asthma and states this feels different prior to asthma exacerbations. Denies cough, fever, abdominal pain, nausea, vomiting, diarrhea, headache, or vertigo. Time Seen by Provider: 08/12/18 10:58 Chief Complaint (Nursing): Chest Pain History Per: Patient History/Exam Limitations: no limitations Onset/Duration Of Symptoms: Days Current Symptoms Are (Timing): Still Present Past Medical History Reviewed: Historical Data, Nursing Documentation, Vital Signs Vital Signs: Last Vital Signs Temp 98.1 F 08/12/18 10:46 Pulse 80 08/12/18 10:46 Resp 18 08/12/18 10:46 BP 158/83 H 08/12/18 10:46 Pulse Ox 97 08/12/18 10:46 - Medical History PMH: Asthma, HTN, Hypercholesterolemia Denies: Chronic Kidney Disease - [facility] Procedures DILATION OF LEFT URETER WITH INTRALUMINAL DEVICE, ENDO (11/06/16) ENDOMETRIAL ABLATION (12/13/13) EXTIRPATION OF MATTER FROM LEFT URETER, ENDO (11/06/16) FLUOROSCOPY KIDNEY, URETER, BLADDER, L W L OSM CONTRAST (11/06/16) PERCUTAN NEEDLE BIOPSY OF BREAST (02/04/13) RADICAL EXCIS SKIN LES (10/20/14) Family History: States: No Known Family Hx - Social History Hx Alcohol Use: No Hx Substance Use: No - Immunization History Hx Tetanus Toxoid Vaccination: No Hx Influenza Vaccination: Yes Hx Pneumococcal Vaccination: No Review Of Systems Constitutional: Negative for: Fever Cardiovascular: Positive for: Chest Pain (left sided, radiating up to upper back), Light Headedness Respiratory: Negative for: Cough Gastrointestinal: Negative for: Nausea, Vomiting, Abdominal Pain, Diarrhea Neurological: Negative for: Headache, Other (vertigo) Physical Exam - Physical Exam Appears: Non-toxic, Other (Mildly uncomfortable) Skin: Warm, Dry Head: Atraumatic, Normacephalic Eye(s): bilateral: Normal Inspection, PERRL, EOMI Oral Mucosa: Moist Neck: Supple Chest: Symmetrical Cardiovascular: Rhythm Regular, No Murmur Respiratory: Normal Breath Sounds, No Rales, No Rhonchi, No Wheezing Gastrointestinal/Abdominal: Soft, No Tenderness Extremity: Bilateral: Atraumatic, Normal Color And Temperature, Normal ROM Neurological/Psych: Oriented x3, Normal Speech ED Course And Treatment ECG: Interpreted By Me, Viewed By Me ECG Rhythm: Sinus Rhythm Interpretation Of ECG: Normal axis. No acute ST/T wave changes. Rate From EC O2 Sat by Pulse Oximetry: 97 (RA) Pulse Ox Interpretation: Normal - Other Rad CXR X-Ray: Read By Radiologist Interpretation: FINDINGS: Examination limited by habitus. LUNGS: No focal consolidation. Please note that chest x-ray has limited sensitivity for the detection of pulmonary masses. PLEURA: No significant pleural effusion identified. No definite pneumothorax . CARDIOVASCULAR: Heart size appears within normal limits. No significant atherosclerotic calcification present. OSSEOUS STRUCTURES: No acute osseous abnormality identified. VISUALIZED UPPER ABDOMEN: Elevation of the right hemidiaphragm. OTHER FINDINGS: None. IMPRESSION: No focal consolidation. Progress Note: Bloodwork and Chest XR ordered and reviewed. Disposition - Disposition - Scribe Statement The provider has reviewed the documentation as recorded by the Willi Pascual Provider Attestation: All medical record entries made by the Scribe were at my direction and personally dictated by me. I have reviewed the chart and agree that the record accurately reflects my personal performance of the history, physical exam, medical decision making, and the department course for this patient. I have also personally directed, reviewed, and agree with the discharge instructions and disposition.
[2018-08-12 14:37] LABS: BLOOD UREA NITROGEN 10 mg/dL (7-17); CALCIUM 9.4 mg/dl (8.6-10.4); GFR NON-AFRICAN AMERICAN > 60; PROTHROMBIN TIME 10.4 SECONDS (9.7-12.2)
[2018-08-12 14:38] LABS: ALB/GLOB RATIO 1.6 (1.0-2.1); ALBUMIN 4.5 g/dL (3.5-5.0); ALT/SGPT 47 U/L (9-52); AST/SGOT 41 U/L (14-36)
[2018-08-12 14:42] LABS: BASO # 0.1 K/uL (0.0-0.2); BASO % 0.9 % (0.0-2.0); EOS # 0.4 K/uL (0.0-0.7); EOS % 6.1 % (0.0-4.0); HEMOGLOBIN 14.7 g/dL (11.0-16.0); LYMPH # 2.4 K/uL (1.0-4.3); LYMPH % 33.5 % (20.0-40.0); MEAN CELL VOLUME 86.1 fL (81.0-99.0); MEAN CORPUSCULAR HEMOGLOBIN 29.8 pg (27.0-31.0); MEAN CORPUSCULAR HGB CONC 34.6 g/dL (33.0-37.0); MEAN PLATELET VOLUME 7.6 fL (7.2-11.7); MONO # 0.4 K/uL (0.0-0.8); NEUT # 3.9 K/uL (1.8-7.0); NEUT % 54.5 % (50.0-75.0); RBC 4.92 Mil/uL (3.80-5.20); RED CELL DISTRIBUTION WIDTH 12.6 % (11.5-14.5); WHITE BLOOD COUNT 7.2 K/uL (4.8-10.8)
[2018-08-12 14:57] LABS: CK-MB 0.58 ng/mL (0.0-3.38)
[2018-08-12 18:51] VITALS: RESP 20
--- NOTE | 2018-08-12 23:53 | CP.PCM.HP ---
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 She is known to have a hypertension, a hypercholesterolemia, a bronchial asthma, a hypercholesterolemia. She denies any cigarette smoking. Her father at 72 yo of a CVA, and her aunt had IN. Present on Admission - Present on Admission Any Indicators Present on Admission: No Review of Systems - Cardiovascular Cardiovascular: Chest Pain at Rest, Lightheadedness, Radiating Pain Past Patient History - Infectious Disease Hx of Infectious Diseases: None - Tetanus Immunizations Tetanus Immunization: Unknown - Past Medical History & Family History Past Medical History?: Yes - Past Social History Smoking Status: Never Smoked Alcohol: None Home Situation {Lives}: With Family Domestic Violence: Negative - CARDIAC Hx Hypercholesterolemia: Yes Hx Hypertension: Yes - PULMONARY Hx Asthma: Yes - NEUROLOGICAL Hx Neurological Disorder: No - HEENT Hx HEENT Problems: No - RENAL Hx Chronic Kidney Disease: No Hx Kidney Stones: Yes - ENDOCRINE/METABOLIC Hx Endocrine Disorders: No - HEMATOLOGICAL/ONCOLOGICAL Hx Blood Disorders: No - INTEGUMENTARY Hx Dermatological Problems: No - MUSCULOSKELETAL/RHEUMATOLOGICAL Hx Musculoskeletal Disorders: No Hx Falls: No - GASTROINTESTINAL Hx Gastrointestinal Disorders: No - GENITOURINARY/GYNECOLOGICAL Hx Genitourinary Disorders: No Other/Comment: MENORRHAGIA - PSYCHIATRIC Hx Substance Use: No - SURGICAL HISTORY Hx Surgeries: Yes Hx Section: Yes (x2) Hx Dilation and Curettage: Yes Other/Comment: STEREOTACTIC BREAST BX - ANESTHESIA Hx Anesthesia: Yes Hx Anesthesia Reactions: No Hx Malignant Hyperthermia: No Meds Allergies/Adverse Reactions: Allergies Allergy/AdvReac Type Severity Reaction Status Date / Time No Known Allergies Allergy Verified 08/12/18 10:51 Physical Exam - Constitutional Appears: Well, No Acute Distress - Head Exam Head Exam: NORMAL INSPECTION - Eye Exam Eye Exam: Normal appearance Pupil Exam: NORMAL ACCOMODATION - ENT Exam ENT Exam: Normal Exam - Neck Exam Neck exam: Positive for: Normal Inspection - Respiratory Exam Respiratory Exam: Clear to Auscultation Bilateral, NORMAL BREATHING PATTERN - Cardiovascular Exam Cardiovascular Exam: REGULAR RHYTHM - GI/Abdominal Exam GI & Abdominal Exam: Normal Bowel Sounds, Soft - Rectal Exam Rectal Exam: Deferred - Extremities Exam Extremities exam: Positive for: normal inspection - Back Exam Back exam: NORMAL INSPECTION - Neurological Exam Neurological exam: Alert, CN II-XII Intact, Oriented x3 - Psychiatric Exam Psychiatric exam: Anxious - Skin Skin Exam: Dry, Intact, Normal Color, Warm Results - Vital Signs Recent Vital Signs: Last Vital Signs Temp 97.5 F L 08/12/18 18:32 Pulse 78 08/12/18 18:42 Resp 20 08/12/18 18:32 BP 127/76 08/12/18 18:32 Pulse Ox 95 08/12/18 18:32 - Labs Result Diagrams: 08/12/18 14:30 08/12/18 14:30 Labs: Laboratory Results - last 24 hr 08/12/18 08/12/18 08/12/18 10:50 14:30 14:30 WBC 7.2 RBC 4.92 Hgb 14.7 Hct 42.4 MCV 86.1 MCH 29.8 MCHC 34.6 RDW 12.6 Plt Count 249 MPV 7.6 Neut % (Auto) 54.5 Lymph % (Auto) 33.5 [place] % (Auto) 5.0 Eos % (Auto) 6.1 H Baso % (Auto) 0.9 Neut # (Auto) 3.9 Lymph # (Auto) 2.4 [place] # (Auto) 0.4 Eos # (Auto) 0.4 Baso # (Auto) 0.1 PT 10.4 INR 1.0 APTT 33 Sodium Potassium Chloride Carbon Dioxide Anion Gap BUN Creatinine Est GFR ( Amer) Est GFR (Non-Af Amer) POC Glucose (mg/dL) 88 Random Glucose Calcium Total Bilirubin AST ALT Alkaline Phosphatase Total Creatine Kinase CK-MB (Mass) Troponin I Total Protein Albumin Globulin Albumin/Globulin Ratio 08/12/18 14:30 WBC RBC Hgb Hct MCV MCH MCHC RDW Plt Count MPV Neut % (Auto) Lymph % (Auto) [place] % (Auto) Eos % (Auto) Baso % (Auto) Neut # (Auto) Lymph # (Auto) [place] # (Auto) Eos # (Auto) Baso # (Auto) PT INR APTT Sodium 138 Potassium 4.4 Chloride 101 Carbon Dioxide 29 Anion Gap 12 BUN 10 Creatinine 0.7 Est GFR ( Amer) > 60 Est GFR (Non-Af Amer) > 60 POC Glucose (mg/dL) Random Glucose 124 H Calcium 9.4 Total Bilirubin 0.3 AST 41 H ALT 47 Alkaline Phosphatase 105 Total Creatine Kinase 70 CK-MB (Mass) 0.58 Troponin I < 0.0120 Total Protein 7.4 Albumin 4.5 Globulin 2.9 Albumin/Globulin Ratio 1.6 Assessment & Plan (1) Chest pain at rest Assessment and Plan: Sofar, ECG is WNL, TNI normal. Will discharge home if subsequent TNI's are normal. Will do stress test as an outpatient to rule out CAD. Status: Acute (2) Hypertension Assessment and Plan: Controlled. To continue same meds. Status: Chronic Decision To Admit - Pt Status Changed To: Hospital Disposition Of: Observation - . Bed Request Type: Telemetry Admitting Physician: Figueroa Williamson
[2018-08-13] MEDS ORDERED: Enoxaparin 40 mg Syringe SC SCH (10:00)
[2018-08-13 12:44] VITALS: BP 137/86; TEMP 97.6; O2SAT 96
[2018-08-13 13:26] VITALS: PULSE 74
--- NOTE | 2018-08-13 23:18 | CARD ---
APPROVED REPORT Date of service: 08/12/2018 EKG Measurement Heart [id number] <Conclusion> Normal sinus rhythm Normal ECG
== END 2018-08-13 12:14 | disposition home or self-care (01) ==
LOC: C.ER 10:32 → C.9E 15:26 → C.6T 17:08
PROVIDERS: ADMIT Internal Medicine Cardiovascular Disease; ATTEND Internal Medicine Cardiovascular Disease
DX: R07.89 Other chest pain (principal); I10 Essential (primary) hypertension; E78.00 Pure hypercholesterolemia, unspecified; J45.909 Unspecified asthma, uncomplicated; N92.0 Excessive and frequent menstruation with regular cycle; R42 Dizziness and giddiness; Z82.3 Family history of stroke; Z82.49 Family history of ischemic heart disease and other diseases of the circulatory system; Z87.442 Personal history of urinary calculi
CPT/HCPCS: 36415; 71045; 80053; 82550; 82553; 82948; 84484; 85025; 85610; 85730; 93005; 99285; G0378; J1650

== ENCOUNTER 2018-08-21 08:11 | Outpatient (CLI) | payer OTHER | END 2018-08-21 08:12 | disposition home or self-care (01) | LOC: C.LAB 08:11 | DX: R31.9 Hematuria, unspecified (principal) ==

== ENCOUNTER 2018-08-24 07:17 | Outpatient (CLI) | payer OTHER | END 2018-08-24 07:18 | disposition home or self-care (01) | LOC: C.USIC 07:17 ==

== ENCOUNTER 2018-08-30 02:18 | Emergency (ER) | payer OTHER | END 2018-08-30 03:01 | disposition home or self-care (01) | LOC: C.ER 02:18 ==